=== PATIENT | male | born 1985 | race Caucasian/White ===

== ENCOUNTER 2016-06-04 15:51 | Emergency (ER) | payer OTHER ==
[~2016-06-04] VITALS: Ht 172.7 cm; Wt 75.0 kg
[~2016-06-04 15:51] MED LIST: DILANTIN100 MG PO; HYDROCHLOROTHIA25 MG PO; KLONOPIN0.5 MG PO; NAPROXEN500 MG PO; PROZAC20 MG PO; ZESTRIL,PRINIVI10 M1 PO; [UNRECOGNIZED DRUG - REMARK]
[2016-06-04 16:17] LABS: HEMATOCRIT 42.8 % (38.0-50.0); MCHC 33.6 G/DL (30.0-36.0); MCV 86.3 FL (86-99); MEAN PLAT.VOLUME 10.5 uM^3 (9.0-12.4); PLATELET COUNT 246 K/uL (156-360); RBC DIS.WIDTH-CV 13.6 % (11.8-14.6); RBC DIS.WIDTH-SD 42.3 % (39-53); RED BLOOD COUNT 4.96 M/uL (4.00-5.50); WHITE BLOOD COUNT 11.1 K/uL (4.1-10.2)
[2016-06-04 16:27] LABS: CHLORIDE 105 mEq/L (99-109); POTASSIUM 4.4 mEq/L (3.7-5.4); SODIUM 140 mEq/L (136-147)
[2016-06-04 16:30] LABS: GLUCOSE 115 mg/dL (70-99)
[2016-06-04 16:31] LABS: ANION GAP 10 MEQ/L (2-14); TOTAL BILIRUBIN 0.1 mg/dL (0.0-1.0)
[2016-06-04 16:33] LABS: ALKALINE PHOSPHATASE 105 IU/L (3-129); GFR ESTIMATE (CALCULATED) > 59 mL/min/
[2016-06-04 16:34] LABS: UREA NITROGEN (BUN) 15 mg/dL (9-23)
[2016-06-04 16:35] LABS: DIRECT BILIRUBIN 0.1 mg/dL (0.0-0.3)
[2016-06-04 16:37] LABS: LIPASE 35 U/L (1.0-51.0)
[2016-06-04 17:00] LABS: ADD MIUA? YES; BILIRUBIN NEGATIVE; BLOOD NEGATIVE; COLOR YELLOW ((YELLOW)); GLUCOSE (STRIP) NEGATIVE; KETONES NEGATIVE; LEUKOCYTES NEGATIVE; NITRITE NEGATIVE; PROTEIN (STRIP) NEGATIVE; SPECIFIC GRAVITY 1.026 (1.000-1.030); UROBILINOGEN 0.2 MG/DL (0.2-1.0)
[2016-06-04 17:03] LABS: BACTERIA NONE SEEN /HPF; EPITHELIAL CELLS RARE /HPF; MUCUS TRACE /LPF; RED BLOOD CELLS 0-5 /HPF (0-5); WHITE BLOOD CELLS 0-5 /HPF (0-5)
[2016-06-04 17:12] LABS: D-DIMER ELISA 0.17 mg/L FEU (< 0.57)
[2016-06-04] MEDS ORDERED: INDOCIN50 MG PO (17:52)
[2016-06-04 18:11] VITALS: BP 138/85
== END 2016-06-04 18:13 | disposition home or self-care (01) ==
LOC: EME 15:51
PROVIDERS: Physician Assistant
DX: R07.81 Pleurodynia (principal); Z72.0 Tobacco use
CPT/HCPCS: 71020; 80048; 80076; 81003; 83690; 85027; 85379; 99281; 99284